=== PATIENT | male | born 1955 | race Caucasian/White ===

== ENCOUNTER 2017-02-21 13:55 | Emergency (ER) | payer BC, OTHER, SELFPAY ==
[~2017-02-21 13:55] MED LIST: Iopamidol 370 76% 100 ML VIAL ONE
[2017-02-21 14:25] LABS: #Basophils 0.2 thou/uL (0.0-0.2); #Eosinphils 0.2 thou/uL (0.0-0.7); #Lymphocytes 3.2 thou/uL (1.20-3.40); #Monocytes 1.1 thou/uL (0.11-0.59); #Neutrophils 5.1 thou/uL (1.40-6.50); %Basophils 1.9 % (0.0-1.0); %Eosinophils 1.6 % (0.0-10.0); %Lymphocytes 32.6 % (21.0-51.0); %Monocytes 11.2 % (0.0-10.0); Hematocrit 55.9 % (42.0-52.0); Mean Platelet Volume 7.7 fL (7.4-10.4); Red Blood Cell (RBC) Count 6.31 mill/uL (4.70-6.10); White Blood Cell (WBC) Count 9.7 thou/uL (4.8-10.8)
[2017-02-21 14:43] LABS: ALT (SGPT) 33 U/L (8-55); AST (SGOT) 31 U/L (5-34); Alkaline Phosphatase 56 U/L (40-150); Anion Gap 17 mmol/L (10-20); BUN (Urea Nitrogen) 13 mg/dL (8.4-25.7); Bilirubin, Total 0.7 mg/dL (0.2-1.2); Calc. Creatinine Clearance 0 mL/min (70-130); Calcium 9.6 mg/dL (7.8-10.44); Carbon Dioxide 23 mmol/L (23-31); Chloride 103 mmol/L (98-107); Estimated GFR-MDRD 57; Globulin 3.5 g/dL (2.4-3.5); Protein, Total 7.7 g/dL (5.8-8.1)
[2017-02-21 14:44] LABS: Troponin I Less than 0.010 ng/mL (< 0.028)
--- NOTE | 2017-02-21 15:42 | CT ---
CT ANGIOGRAM THORAX WITH IV CONTRAST AND 3D RECONSTRUCTIONS: 02/21/2017 HISTORY: Witnessed syncopal episode. Heart palpitations. The patient states it feels as if heart is racing. FINDINGS: No filling defects are seen in the pulmonary arteries to suggest a pulmonary embolus. The thoracic aorta is normal in caliber without evidence of an aortic dissection. The mediastinal structures have a normal CT appearance. There is a small, approximately 5 mm, noncalcified pulmonary nodule seen at the posterior aspect, ri ght lower lobe (image 96, series 7). There is mild dependent bibasilar atelectasis, in addition to a small pleural-based nodular density also present at the right lung base, measuring 4 mm. Degenerative changes are seen in the spine. IMPRESSION: 1. No CT evidence of a pulmonary embolus. 2. There is a 5 mm pulmonary nodule, right lower lobe, with a 4 mm pleural-based nodular density at the right lung base, each of which is a nonspecific finding. POS: [facility]
--- NOTE | 2017-04-14 11:38 | EKG ---
Test Reason : SYNCOPE Blood Pressure : / mmHG Vent. Rate : 107 BPM Atrial Rate : 107 BPM P-R Int : 164 ms QRS Dur : 088 ms QT Int : 314 ms P-R-T Axes : 054 039 015 degrees QTc Int : 419 ms Sinus tachycardia Otherwise normal ECG Confirmed by TORSTEN YOUNG D.O. ([id number]), research editor SHYAM FOLEY ([id number] on 04/14/2017 11:38:15 AM Referred By: JAREN Confirmed By:TORSTEN YOUNG D.O.
== END 2017-02-21 15:50 | disposition home or self-care (01) ==
LOC: SCSER 13:55
DX: R55 Syncope and collapse (principal); D75.1 Secondary polycythemia; K57.90 Diverticulosis of intestine, part unspecified, without perforation or abscess without bleeding; T38.5X5A Adverse effect of other estrogens and progestogens, initial encounter; Z79.899 Other long term (current) drug therapy
CPT/HCPCS: 71275; 80053; 82553; 84484; 85025; 85379; 93005; 94760; 96360

== ENCOUNTER 2020-01-16 13:23 | Outpatient (CLI) | payer OTHER ==
--- NOTE | 2020-01-16 14:54 | ULT ---
EXAM: US Arterial Doppler Lower Ext DATE: 01/16/2020 2:39 PM INDICATION: History of cold feet; muscular atrophy and left calf surgery COMPARISON: None. FINDING: There are triphasic waveforms involving the arterial structures of both lower extremities. No hemodynamically significant stenosis identified. IMPRESSION:No hemodynamically significant stenosis.
== END 2020-01-16 13:24 | disposition home or self-care (01) ==
LOC: ULT 13:23
PROVIDERS: ATTEND Family Medicine Sports Medicine
DX: R20.8 Other disturbances of skin sensation (principal)
CPT/HCPCS: 93923

== ENCOUNTER 2022-05-04 15:19 | Outpatient (CLI) | payer MEDICARE, OTHER ==
[2022-05-04 19:44] LABS: #Eosinphils 0.2 thou/uL (0.0-0.7); #Monocytes 0.8 thou/uL (0.11-0.59); #Neutrophils 3.8 thou/uL (1.40-6.50); %Basophils 0.6 % (0.0-1.0); %Eosinophils 3.1 % (0.0-10.0); %Lymphocytes 38.4 % (21.0-51.0); %Monocytes 9.6 % (0.0-10.0); %Neutrophils 48.3 % (42.0-75.0); Hemoglobin 16.7 g/dL (14.0-18.0); Mean Corpuscular HGB CONC 33.8 g/dL (32.0-36.0); Mean Corpuscular Hemoglobin 31.9 pg (27.0-31.0); Mean Corpuscular Volume 94.3 fl (78.0-98.0); Mean Platelet Volume 8.4 fL (7.4-10.4); Platelet Count 215 10x3/uL (130-400); RBC Distribution Width 12.5 % (11.5-14.5); Red Blood Cell (RBC) Count 5.24 mill/uL (4.70-6.10); White Blood Cell (WBC) Count 7.8 10x3/uL (4.8-10.8)
[2022-05-04 19:46] LABS: Bacteria/HPF None Seen HPF (None Seen); Bilirubin Negative (Negative); Blood, Urine Negative (Negative); Clarity Clear (Clear); Glucose, Urine (Dipstick) Normal (Negative); Ketone, Urine 10 mg/dL (Negative); Leukocyte Negative Leu/uL (Negative); Nitrite Negative (Negative); Protein, Urine (Dipstick) Negative (Neg-Trace); RBC/HPF 0-3 HPF (0-3); Specific Gravity, Urine 1.022 (1.002-1.036); Squamous Epithelial None Seen HPF (0-3); Urobilinogen Normal mg/dL (Less than 2); WBC/HPF 0-3 HPF (0-3); pH, Urine 5.5 (5.0-9.0)
[2022-05-04 19:48] LABS: PTT 32.9 sec (22.9-36.1); Prothrombin Time 13.7 sec (12.0-14.7)
[2022-05-04 19:55] LABS: Hemoglobin A1c 6.6 % (4.0-6.0)
[2022-05-04 20:08] LABS: Anion Gap 14 mmol/L (10-20); BUN (Urea Nitrogen) 14 mg/dL (8.4-25.7); Calc. Creatinine Clearance 0 mL/min (70-130); Calcium 9.1 mg/dL (7.8-10.44); Carbon Dioxide 24 mmol/L (23-31); Cardiac Risk 3.3 (Less than 4.5); Chloride 106 mmol/L (98-107); Cholesterol 100 mg/dl (< 200 Desired); Estimated GFR 67; Glucose 116 mg/dL (80-115); HDL Cholesterol 30 mg/dL (>60 Neg Risk); LDL Cholesterol, Calculated 36 mg/dL; Potassium 4.5 mmol/L (3.5-5.1); Sodium 139 mmol/L (136-145); Triglycerides 169 mg/dL (Less than 150)
[2022-05-04 21:23] LABS: Creatinine, Urine 111.08 mg/dL (63-166); Microalbumin Urine 1.3 mg/dL (0.5-50.0); Microalbumin/Creat Ratio 11.7 mg/g (Less than 30)
== END 2022-05-04 15:20 | disposition home or self-care (01) ==
LOC: SCSRAD 15:19
PROVIDERS: ATTEND Family Medicine Sports Medicine
DX: Z01.818 Encounter for other preprocedural examination (principal); E78.5 Hyperlipidemia, unspecified; E11.9 Type 2 diabetes mellitus without complications; I10 Essential (primary) hypertension
CPT/HCPCS: 36415; 71046; 80048; 80061; 81001; 82043; 83036; 85025; 85610; 85730

== ENCOUNTER 2022-10-04 11:56 | Outpatient (CLI) | payer MEDICARE, OTHER | END 2022-10-04 11:57 | disposition home or self-care (01) | LOC: SCSMRI 11:56 | PROVIDERS: ATTEND Orthopaedic Surgery | DX: S76.302A Unspecified injury of muscle, fascia and tendon of the posterior muscle group at thigh level, left thigh, initial encounter (principal); S46.212A Strain of muscle, fascia and tendon of other parts of biceps, left arm, initial encounter ==

== ENCOUNTER 2023-02-26 14:29 | Outpatient (CLI) | payer MEDICARE, OTHER ==
[2023-02-26 16:23] LABS: #Basophils 0.1 10x3/uL (0.0-0.2); #Eosinphils 0.4 10x3/uL (0.0-0.5); #Monocytes 0.8 10x3/uL (0.0-1.1); #Neutrophils 3.2 10x3/uL (1.5-8.4); %Eosinophils 4.7 % (0.0-6.0); %Lymphocytes 40.7 % (18.0-47.0); %Monocytes 10.9 % (0.0-10.0); %Neutrophils 42.4 % (40.0-75.0); Hematocrit 49.4 % (38.8-50.0); Hemoglobin 16.7 g/dL (13.5-17.5); Mean Corpuscular HGB CONC 33.8 g/dL (32.0-36.0); Mean Corpuscular Hemoglobin 30.7 pg (27.0-33.0); Mean Corpuscular Volume 90.8 fl (81.2-95.1); Mean Platelet Volume 10.2 fl (7.4-10.4); Platelet Count 217 10x3/uL (150-450); RBC Distribution Width 14.4 % (11.5-14.5); Red Blood Cell (RBC) Count 5.44 10x6/uL (4.32-5.72); White Blood Cell (WBC) Count 7.6 10x3/uL (3.5-10.5)
[2023-02-26 16:35] LABS: ALT (SGPT) 37 U/L (8-55); AST (SGOT) 32 U/L (5-34); Albumin 4.3 g/dL (3.4-4.8); Alkaline Phosphatase 47 U/L (40-110); Anion Gap 14 mmol/L (10-20); BUN (Urea Nitrogen) 18 mg/dL (8.4-25.7); Bilirubin, Total 0.4 mg/dL (0.2-1.2); Calc. Creatinine Clearance 0 mL/min (70-130); Calcium 9.3 mg/dL (7.8-10.44); Carbon Dioxide 23 mmol/L (23-31); Chloride 105 mmol/L (98-107); Estimated GFR 66; Glucose 125 mg/dL (80-115); Potassium 4.6 mmol/L (3.5-5.1); Protein, Total 7.3 g/dL (5.8-8.1); Sodium 137 mmol/L (136-145)
== END 2023-02-26 14:30 | disposition home or self-care (01) ==
LOC: LABBT 14:29
PROVIDERS: ATTEND Surgery
DX: Z01.818 Encounter for other preprocedural examination (principal); K60.3 Anal fistula
CPT/HCPCS: 80053; 85025; 93005; 93010

== ENCOUNTER 2023-02-28 08:14 | Day surgery (SDC) | payer MEDICARE, OTHER ==
[2023-02-26 15:27] VITALS: BMI 34.7
[2023-02-28] MEDS ORDERED: Methylene Blue 50 MG/10 ML AMPUL ONE (10:45)
[2023-02-28] MEDS ORDERED: Bacitracin Zinc Ointment 30 gm TUBE ONE ×2 (10:46→10:47)
[2023-02-28] MEDS ORDERED: Bupivacaine 0.25% HCL 30 ML VIAL ONE (10:46)
[2023-02-28] MEDS ORDERED: EPINEPHrine 1 MG/ML VIAL ONE (10:56)
[2023-02-28] MEDS ORDERED: Sodium Chloride 0.9% 100 ML ONE (11:06)
[2023-02-28] MEDS ORDERED: cefOXitin 2 GM VIAL ONE (11:06)
[2023-02-28] MEDS ORDERED: ePHEDrine Sulfate 50 MG/10 ML VIAL ONE (11:10)
[2023-02-28] MEDS ORDERED: Ondansetron PF 4 MG/2 ML Vial ONE (11:10)
[2023-02-28] MEDS ORDERED: Ketorolac Tromethamine 30 MG/ML VIAL ONE (11:10)
[2023-02-28] MEDS ORDERED: Lidocaine 1% PF 5 ML VIAL ONE (11:10)
[2023-02-28] MEDS ORDERED: PROPOFOL 200 MG/20 ML VIAL ONE (11:10)
[2023-02-28] MEDS ORDERED: Dexamethasone 20 MG/5 ML VIAL ONE (11:10)
[2023-02-28] MEDS ORDERED: HYDROcodone/Acetaminophen 5/325 mg Tablet ONE (13:22)
== END 2023-02-28 13:44 | disposition home or self-care (01) ==
LOC: SDC 08:14
PROVIDERS: ATTEND Surgery
PROC: 0DBQ0ZZ Excision of Anus, Open Approach (ICD-10-PCS; principal; 2023-02-28)
PROC: 0DBQXZZ Excision of Anus, External Approach (ICD-10-PCS; 2023-02-28)
DX: K60.3 Anal fistula (principal); I10 Essential (primary) hypertension; E11.9 Type 2 diabetes mellitus without complications; Z79.899 Other long term (current) drug therapy
CPT/HCPCS: 46020; 46275; J0171; Q9968; J0694; J1100; J1885; J2405; J2704; J3490; S0020

== ENCOUNTER 2023-07-06 09:29 | Outpatient (CLI) | payer MEDICARE, OTHER | END 2023-07-06 09:30 | disposition home or self-care (01) | LOC: BICCT 09:29 | PROVIDERS: ATTEND Family Medicine Sports Medicine | DX: R55 Syncope and collapse (principal); J32.0 Chronic maxillary sinusitis | CPT/HCPCS: 70498; 82565 ==

== ENCOUNTER 2023-10-01 08:18 | Outpatient (CLI) | payer MEDICARE, OTHER | END 2023-10-01 08:19 | disposition home or self-care (01) | LOC: BICCT 08:18 | PROVIDERS: ATTEND Psychiatry & Neurology Epilepsy | DX: M50.30 Other cervical disc degeneration, unspecified cervical region (principal); M47.812 Spondylosis without myelopathy or radiculopathy, cervical region | CPT/HCPCS: 72125 ==